=== PATIENT | female | born 1940 ===

== ENCOUNTER → 2019-02-01 13:02 | Outpatient (BNVA) | payer MEDICARE, MEDICAID, SELFPAY | PROVIDERS: Referring Provider Family Medicine; Visit Provider Urology | DX: R31.9 Hematuria, unspecified (principal); E11.9 Type 2 diabetes mellitus without complications; J44.9 Chronic obstructive pulmonary disease, unspecified; Z87.891 Personal history of nicotine dependence; R79.89 Other specified abnormal findings of blood chemistry | CPT/HCPCS: 99203 ==